=== PATIENT | male | born 1990 | race Caucasian/White ===

== ENCOUNTER 2016-05-27 02:01 | Emergency (ER) | payer SELFPAY ==
[~2016-05-27] VITALS: Ht 165.1 cm; Wt 75.7 kg
[2016-05-27] MEDS ORDERED: NKM (02:13)
[2016-05-27] MEDS ORDERED: AUGMENTIN 875-1 EAC1 ORAL (02:28)
--- NOTE | 2016-05-27 02:28 | Emergency Room Report ---
History of Present Illness General Chief Complaint: Fever Source: Patient Present Illness HPI Is a 25-year-old male with no past medical history. He presents with for 5 days history of cough congestion. Now with fever sore throat. The last 2 days he has copious amount of diarrhea. Diarrhea is profuse and watery. Now when he wipes, he has blood. Very painful. Skin is macerated. Pain is 10 out of 10. Fever subjective. Allergies: Coded Allergies: No Known Allergies (Unverified , 05/27/16) Patient History Past Medical History: see triage record, old chart reviewed Past Surgical History: none Social History: Denies: smoking Immunizations: other Reviewed Nursing Documentation: PMH: Agreed, PSxH: Agreed Nursing Documentation-PMH Past Medical History: No Stated History Review of Systems Constitutional: Reports: fever Eye: Denies: blurred vision, eye pain ENT: Reports: ear pain, nose congestion, throat pain, throat swelling Respiratory: Reports: cough, Denies: shortness of breath Cardiovascular: Denies: chest pain, palpitations Gastrointestinal: Reports: diarrhea, Denies: abdominal pain, nausea, vomiting Musculoskeletal: Denies: back pain, joint pain Skin: Denies: rash Neurological: Denies: headache, numbness Endocrine: Denies: increased thirst, increased urine Hematologic/Lymphatic: Denies: easy bruising All Other Systems: negative except mentioned in HPI Physical Exam Vital Signs Date Time Temp Pulse Resp B/P Pulse Ox O2 Delivery O2 Flow Rate FiO2 05/27/16 02:05 99.3 105 18 132/71 96 Room Air vitals unremarkable. Sp02 EP Interpretation: reviewed, normal General Appearance: well appearing, no apparent distress, alert Head: normocephalic, atraumatic Eyes: bilateral eye EOMI, bilateral eye PERRL ENT: hearing grossly normal, pharyngeal erythema, other - TMs: dull with loss of light reflex. Fluids Neck: full range of motion, supple, no meningismus Respiratory: chest non-tender, lungs clear, normal breath sounds Cardiovascular #1: regular rate, rhythm, no murmur Gastrointestinal: normal bowel sounds, non tender, no mass, no organomegaly, no bruit, non-distended Genitourinary: other - Rectal: anal area with irritation, skin maceration. Musculoskeletal: back normal, gait/station normal, normal range of motion Neurologic: alert, oriented x3 Psychiatric: mood/affect normal Skin: warm/dry Medical Decision Making Diagnostic Impression: Primary Impression: Pharyngitis, acute Qualified Codes: J02.9 - Acute pharyngitis, unspecified Additional Impressions: Acute otitis media, bilateral Diarrhea in adult patient ER Course Patient presents with a viral illness now complicated by bilateral otitis media. The skin irritation is secondary to profuse diarrhea and wiping. He has no evidence of acute abdomen. May have infectious diarrhea. We'll go ahead and put on antibiotics. Told patient that they stopped the diarrhea. Use water to clean himself. We'll discharge home. Last Vital Signs Date Time Temp Pulse Resp B/P Pulse Ox O2 Delivery O2 Flow Rate FiO2 05/27/16 02:05 99.3 105 18 132/71 96 Room Air Status: unchanged Disposition: HOME, SELF-CARE Condition: Stable Scripts Amoxicillin/Potassium Clav 875-125* (AUGMENTIN 875-125 TABLET*) 1 Each Tablet 1 TAB ORAL TWICE A DAY, #14 TAB Prov: AMY BASURTO M.D. 05/27/16 Additional Instructions: Followup with your Dr in 2 to 3 days. Use water instead of wiping. Return if symptom worsen. AMY BASURTO M.D. May 27, 2016 02:28
[2016-05-27 02:33] VITALS: BP 132/71
== END 2016-05-27 03:15 | disposition home or self-care (01) ==
LOC: EMR 03:05
DX: J02.9 Acute pharyngitis, unspecified (principal); H66.93 Otitis media, unspecified, bilateral; R19.7 Diarrhea, unspecified
CPT/HCPCS: 99283